=== PATIENT | male | born 1960 | race Caucasian/White ===

== ENCOUNTER 2017-10-12 10:23 | Inpatient (IN) | payer MEDICARE ==
[~2017-10-12 10:23] MED LIST: ASPIRIN 32325 MG/TAB PO; COREG 25MG25 MG/TAB PO; COREG12.5 MG PO; COUMADIN 5MG5 MG/TAB PO; K-DUR 10 MEQ T10 MEQ PO; LASIX 20MG TABL20 MG PO; LOVENOX150 MG/ML SC; RT SPIRIVA18 MCG IH; TRIBENZOR 10 MG1 TA1 PO; TYLENOL 325MG325 MG PO; VENTOLIN0.09 MG IH
[2017-10-12] MEDS ORDERED: PRINZIDE 12.5 M1 TAB (13:58)
[2017-10-12] MEDS ORDERED: PRAVACHOL 20MG20 MG PO (13:59)
[2017-10-13] VITALS (12 sets, daily range): BP systolic 106–170; BP diastolic 49–98; PULSE 59–102; TEMP 98.1–98.6
[2017-10-13] MEDS ORDERED: TYLENOL 500MG500 MG PO (01:28)
[2017-10-13] MEDS ORDERED: ULTRAM 50MG TAB50 MG PO (01:30)
[2017-10-13] MEDS ORDERED: PRINIVIL40 MG PO (01:33)
[2017-10-13] MEDS ORDERED: HCTZ 25MG TAB25 MG PO (01:33)
[2017-10-13] MEDS ORDERED: AMARYL 2MG T2 MG/TAB PO (01:37)
[2017-10-13 06:04] LABS: PROTHROMBIN TIME 10.8 SECONDS (9.7-12.8)
[2017-10-14 03:27] VITALS: BP 172/96; PULSE 100; TEMP 98.3
[2017-10-14 04:32] VITALS: BP 164/59
[2017-10-14 06:36] LABS: HEMATOCRIT 40.3 % (42.0-52.0); HEMOGLOBIN 13.3 g/dl (13.5-18.0)
[2017-10-14 07:41] VITALS: BP 157/81; PULSE 95; TEMP 98.2
[2017-10-14] MEDS ORDERED: NORCO 325 MG-7.1 TAB PO (08:27)
== END 2017-10-14 12:20 | disposition home or self-care (01) | DRG 470 ==
LOC: JCC 10-13 05:17
PROVIDERS: Orthopaedic Surgery
PROC: 0SRD0J9 Replacement of Left Knee Joint with Synthetic Substitute, Cemented, Open Approach (ICD-10-PCS; principal; 2017-10-13 07:30)
DX: M17.12 Unilateral primary osteoarthritis, left knee (principal); J44.9 Chronic obstructive pulmonary disease, unspecified; E11.9 Type 2 diabetes mellitus without complications; F17.210 Nicotine dependence, cigarettes, uncomplicated; Z86.718 Personal history of other venous thrombosis and embolism; Z86.711 Personal history of pulmonary embolism; Z79.01 Long term (current) use of anticoagulants
CPT/HCPCS: A9284; C1713; C1776; J0690; J1100; J2250; J2405; J2704; J3010; J7030

== ENCOUNTER → 2020-09-24 | Outpatient (CLI) | payer MEDICARE ==
[~2020-09-24] MED LIST changes: +AMARYL 2MG T2 MG/TAB PO; +HCTZ 25MG TAB25 MG PO; +NORCO 325 MG-7.1 TAB PO; +PRAVACHOL 20MG20 MG PO; +PRINIVIL40 MG PO; +PRINZIDE 12.5 M1 TAB; +TYLENOL 500MG500 MG PO; +ULTRAM 50MG TAB50 MG PO
[2020-09-24 16:41] LABS: SYNOVIAL FL. MONONUCLEAR 8.2 % (0-75); SYNOVIAL FLUID RBC 19000 /mm3 (0-0); SYNOVIAL FLUID WBC 54223 /mm3 (200-600)
[2020-09-24 16:42] LABS: SYNOVIAL FLUID APPEARANCE CLOUDY; SYNOVIAL FLUID COLOR YELLOW
== END ==
LOC: ZCOL.LAB 16:19
PROVIDERS: Orthopaedic Surgery
DX: M25.561 Pain in right knee (principal)

== ENCOUNTER 2020-09-30 08:00 | Outpatient (CLI) | payer MEDICARE ==
[~2020-09-30] VITALS: Ht 188 cm; Wt 143.2 kg
[2020-09-30] MEDS ORDERED: CRESTOR40 MG PO (08:23)
[2020-09-30] MEDS ORDERED: CYMBALTA 30MG30 MG PO ×2 (08:24→08:25)
[2020-09-30] MEDS ORDERED: CRESTOR5 MG PO (08:24)
[2020-09-30] MEDS ORDERED: FLOMAX 0.40.4 MG/CAP PO (08:26)
[2020-09-30 08:33] VITALS: BP 130/74; PULSE 68; TEMP 98.3
== END 2020-09-30 11:39 | disposition home or self-care (01) ==
LOC: EUO 08:00
DX: Z45.2 Encounter for adjustment and management of vascular access device (principal)
CPT/HCPCS: C1751

== ENCOUNTER → 2023-02-12 | Outpatient (CLI) | payer MEDICARE ==
[~2023-02-12] MED LIST changes: +CRESTOR40 MG PO; +CRESTOR5 MG PO; +CYMBALTA 30MG30 MG PO; +FLOMAX 0.40.4 MG/CAP PO
== END ==
LOC: COL.PUL 08:00
DX: R06.02 Shortness of breath (principal)
CPT/HCPCS: Q9967